=== PATIENT | female | born 1965 | race African-American/Black ===

== ENCOUNTER 2017-12-12 23:22 | Emergency (ER) | payer MEDICAID ==
[~2017-12-12] VITALS: Ht 172.7 cm; Wt 91.0 kg
[~2017-12-12 23:22] MED LIST: AMLO5TAB4; LISI40TA4; SIMV20TA2
[2017-12-12 23:49] VITALS: BP 149/99
[2017-12-13 01:11] LABS: CLARITY URINE CLEAR (CLEAR); COLOR URINE YELLOW (YELLOW); KETONES URINE NEGATIVE (NEGATIVE); LEUKOCYTE ESTERASE URINE NEGATIVE (NEGATIVE); NITRITE URINE NEGATIVE (NEGATIVE); OCCULT BLOOD URINE NEGATIVE (NEGATIVE); PROTEIN URINE NEGATIVE (NEGATIVE); UROBILINOGEN URINE 0.2 E.U./dL (0.2-1.0)
== END 2017-12-13 04:03 | disposition left against medical advice (07) ==
LOC: ER 12-13 03:04
DX: R10.9 Unspecified abdominal pain (principal); R11.2 Nausea with vomiting, unspecified; Z53.21 Procedure and treatment not carried out due to patient leaving prior to being seen by health care provider
CPT/HCPCS: 81003